=== PATIENT | female | born 1995 | race African-American/Black ===

== ENCOUNTER 2025-05-14 12:42 | Emergency (ER) | payer MEDICAID, OTHER ==
[~2025-05-14] VITALS: Ht 175.3 cm; Wt 70.5 kg
[2025-05-14] MEDS ORDERED: ALBU18HF12 IH (12:45)
[2025-05-14 12:48] VITALS: BP 128/105; PULSE 98; RESP 16; TEMP 97.2; O2SAT 100
== END 2025-05-14 15:09 | disposition left against medical advice (07) ==
LOC: EMS 13:29
DX: T78.40XA Allergy, unspecified, initial encounter (principal); Z53.21 Procedure and treatment not carried out due to patient leaving prior to being seen by health care provider